=== PATIENT | female | born 1965 | race Caucasian/White ===

== ENCOUNTER 2020-06-08 19:53 | Emergency (ER) | payer MEDICAID, SELFPAY ==
[2020-06-08 20:11] VITALS: BP 141/86; PULSE 84; RESP 16; TEMP 36.7; O2SAT 100; BMI 21.0
[2020-06-08 20:20] VITALS: BP 141/86; PULSE 84; RESP 16; TEMP 36.7; O2SAT 100; BMI 21.0
--- NOTE | 2020-06-08 20:23 | XR_ITS ---
PROCEDURE: XR KNEE LT 3V CLINICAL INDICATION: pain COMPARISON: No exams were available for comparison FINDINGS: No fracture or dislocation. No lytic or blastic change. There is normal mineralization. The joint spaces are well-preserved. No significant degenerative/arthritic changes. No erosive changes evident. Other findings:None. IMPRESSION: No acute findings. Dictated by: Bob Bruno MD 06/09/2020 05:31 Bob Bruno MD in [place] 06/09/2020 05:31
--- NOTE | 2020-06-08 20:58 | HMH.EDUTC ---
[facility] [place] Disposition Clinical Impression: Knee sprain Qualifiers: Encounter type: initial encounter Involved ligament of knee: other ligament Laterality: left Qualified Code(s): S83.8X2A - Sprain of other specified parts of left knee, initial encounter Disposition: Home, Self-Care Condition on Discharge: Good Instructions: How to Use Crutches, How To Perform RICE (Rest, Ice, Compress, Elevate) Additional Instructions: *weight bearing as tolerated *RICE, Rest the extremity, Ice 15-20 minutes 3-4 times daily, Compress- wear the edilberto wrap as discussed as much as possible to help reduce swelling and pain, Elevate the extremity when at rest *Edilberto wrap is for support and help control swelling, use it except in the shower. Be sure that is not to tight but not to loose either *Elevate when resting *Ibuprofen every 6-8 hours as needed for pain an inflammation. If need something more can take Tylenol in between doses of Ibuprofen to help Immediately follow up with your family doctor for new or worsening of symptoms, or no noticeable improvement over the next 3-5 days Follow up with Family Doctor if no improvement or any worsening of symptom Call back to the [facility] tomorrow for official reading of your xray You may follow up with Orthopedics if needed Straight to ER if any life threatening symptoms Referrals: PCP,No [Primary Care Provider] - As needed Eamon Pastor MD [Staff Physician] - Time of Disposition: 21:17 Medical Decision Making - Vignesh Inquiry Pt receiving controlled substance: No Vignesh was queried for this patient: No Vital Signs: 06/08/20 20:11 06/08/20 20:20 Temperature 98.1 F 98.1 F Temperature Source Oral Oral Pulse Rate [Left] 84 84 Respiratory Rate 16 16 Blood Pressure [Left Arm] 141/86 H 141/86 H Blood Pressure Mean [Left Arm] 104 104 Blood Pressure Source [Left Arm] Automatic Cuff Automatic Cuff Blood Pressure Position [Left Arm] Sitting Sitting 02 Sat by Pulse Oximetry 100 100 Oxygen Delivery Method Room Air Room Air Orders (Tests/Meds): ORDERS Category Date Time Status XR knee LT 3V Stat Exams 06/08/20 20:23 Taken - Radiology Data #1 Image(s): Knee Image Reviewed: Yes I reviewed the patient's radiology image Preliminary Findings: No Fracture Seen Will place in knee immobilizer and crutches and have patient call back to [facility] for official Radiology reading [facility] [place] HPI - General Stated complaint: shrp pain in L knee cap Time Seen by Provider: 06/08/20 21:06 Mode of Arrival: Ambulatory Source of Information: Patient Limitations: No Limitations Description of Symptoms (Recalled from Triage Doc. by RN): PATIENT C/O SHARP PAIN IN LEFT KNEE X 1 WEEK. HEENT Symptoms (Recalled from RN notes): No Resp Symptoms (Recalled from RN notes): No Skin Symptoms (Recalled from RN notes): No MS Symptoms (Recalled from RN notes): Yes Functional Status (Recalled from RN notes): WNL - History of Present Illness Provider Complaint: Patient states that she has been having sharp pain in her left knee for about a week States that pain is worse at times when she is walking down a hill or steps over something States that she is not sure if she has done something too it or not Denies known injury - Related Data Allergies Allergy/AdvReac Type Severity Reaction Status Date / Time acetaminophen Allergy Verified 06/08/20 20:44 [From Excedrin Extra Strength] aspirin Allergy Verified 06/08/20 20:44 [From Excedrin Extra Strength] caffeine Allergy Verified 06/08/20 20:44 [From Excedrin Extra Strength] - Worker's Comp Is this a Worker's Comp case?: No [facility] History - Hepatitis A Screen Drug use history?: No High risk sexual behaviors?: No History of sexually transmitted infection?: No Currently employed?: No Childcare worker?: No Do you have indoor plumbing?: Yes Do you have electricity?: Yes Attestation statement:: This patient has been screened for Hepatitis A ri
[2020-06-08 21:20] VITALS: BP 141/86; PULSE 84; RESP 16; TEMP 36.7; O2SAT 100
== END 2020-06-08 21:25 | disposition home or self-care (01) ==
PROVIDERS: Emergency Provider Nurse Practitioner
DX: S83.91XA Sprain of unspecified site of right knee, initial encounter (principal); Z88.6 Allergy status to analgesic agent
CPT/HCPCS: 29505; 73562; 99202; G0463

== ENCOUNTER 2020-07-21 17:19 | Emergency (ER) | payer MEDICAID, SELFPAY ==
[2020-07-21 17:20] VITALS: BP 140/86; PULSE 77; RESP 17; TEMP 36.9; O2SAT 98; BMI 21.0
--- NOTE | 2020-07-21 17:56 | ECG_ITS ---
APPROVED REPORT Exam: Resting ECG HR:69 bpm ECG Measurements Heart Rate 69 AXES SD 120 P 64 QRSd 80 QRS 51 QT 420 T 59 QTc 450 Conclusion Normal sinus rhythm Normal ECG Electronically signed by : Jaron Vines, 07/22/2020 08:47:38
[2020-07-21 18:00] VITALS: BP 125/76; PULSE 72; RESP 17; O2SAT 98
--- NOTE | 2020-07-21 18:18 | CT_ITS ---
PROCEDURE INFORMATION: Exam: CT Abdomen And Pelvis Without Contrast Exam date and time: 07/21/2020 6:18 PM Age: 55 years old Clinical indication: Nausea and vomiting and other: Diarrhea; Prior surgery; Surgery date: 6+ months; Surgery type: Gallbladder, appendix, hysterectomy; Patient HX: Nausea, vomiting, diarrhea; Additional info: Abd pain TECHNIQUE: Imaging protocol: Computed tomography of the abdomen and pelvis without contrast. Radiation optimization: All CT scans at this facility use at least one of these dose optimization techniques: automated exposure control; mA and/or kV adjustment per patient size (includes targeted exams where dose is matched to clinical indication); or iterative reconstruction. COMPARISON: No relevant prior studies available. FINDINGS: Liver: Normal. No mass. Gallbladder and bile ducts: Cholecystectomy. Pancreas: Normal. No ductal dilation. Spleen: Normal. No splenomegaly. Adrenal glands: Normal. No mass. Kidneys and ureters: No obstructive uropathy. No renal stones. Stomach and bowel: Air-fluid levels in the colon likely reflecting diarrhea and possibly low-grade colitis. Appendix: Appendix not seen but no secondary signs of appendicitis. Intraperitoneal space: Unremarkable. No free air. No significant fluid collection. Vasculature: Unremarkable. No abdominal aortic aneurysm. Lymph nodes: Unremarkable. No enlarged lymph nodes. Urinary bladder: Unremarkable as visualized. Reproductive: Hysterectomy. Bones/joints: Unremarkable. No acute fracture. Soft tissues: Unremarkable. IMPRESSION: Low-grade colitis and diarrhea.
[2020-07-21 18:38] LABS: Adenovirus F 40/41, stool Not Detected (NotDetected); Astrovirus Not Detected (NotDetected); Campylobacter Not Detected (NotDetected); Clostridium Difficile A/B, PCR Not Detected (NotDetected); Cryptosporidium Not Detected (NotDetected); Cyclospora Cayetanesis Not Detected (NotDetected); Entamoeba histolytica Not Detected (NotDetected); Enteroaggregative E coli Not Detected (NotDetected); Enteropathogenic E coli Not Detected (NotDetected); Enterotoxigenic E coli Not Detected (NotDetected); Giardia lamblia Not Detected (NotDetected); Norovirus Not Detected (NotDetected); Plesimonas Shigalloides, PCR Not Detected (NotDetected); Rotavirus A Not Detected (NotDetected); Salmonella, PCR Not Detected (NotDetected); Sapovirus Not Detected (NotDetected); Shiga-like toxin E coli Not Detected (NotDetected); Shigella Enterovasive E coli Not Detected (NotDetected); Vibrio Cholerae Not Detected (NotDetected); Vibrio, PCR Not Detected (NotDetected); Yersinia Entercolitica, PCR Not Detected (NotDetected)
[2020-07-21 18:41] LABS: Basophils # 0.1 K/mm3 (0-0.2); Basophils % 0.4 % (0.1-2.0); Eosinophils # 0.2 K/mm3 (0.0-0.4); Eosinophils % 1.3 % (0.1-12.0); Hematocrit 45.8 % (37.0-47.0); Hemoglobin 15.3 g/dL (12.2-16.2); Mean Corpuscular HGB Conc 33.5 g/dL (31.8-35.4); Mean Corpuscular Hemoglobin 30.5 pg (27.0-31.2); Mean Platelet Volume 8.3 fl (7.4-10.4); Monocytes # 0.2 K/mm3 (0.1-1.0); Monocytes % 1.5 % (1.7-9.3); Neutrophils # 11.9 K/mm3 (1.8-7.8); Neutrophils % 82.7 % (37.0-80.0); Platelet Count 338 K/mm3 (142-424); Red Blood Count 5.03 M/mm3 (4.20-5.40); White Blood Count 14.5 K/mm3 (4.8-10.8)
[2020-07-21 19:00] VITALS: BP 94/55; PULSE 68; RESP 17; O2SAT 100
[2020-07-21 19:07] LABS: Troponin I < 0.01 ng/ml (0.00-0.034)
[2020-07-21 19:28] LABS: Chloride 102 mmol/L (98-107); Sodium 141 mmol/L (136-145)
[2020-07-21 19:29] LABS: Potassium 3.8 mmoL/L (3.5-5.1)
[2020-07-21 19:30] VITALS: BP 119/73; PULSE 73; RESP 17; O2SAT 100
[2020-07-21 19:31] LABS: Alanine Aminotransferase 19 U/L (12-78); Alkaline Phosphatase 99 U/L (38-126); Amylase 137 U/L (30-110); Anion Gap 20.8 mEq/L (5-15); Aspartate Amino Transferase 40 U/L (14-36); Bilirubin,Total 0.7 mg/dl (0.2-1.3); Blood Urea Nitrogen 19 mg/dl (7-17); Carbon Dioxide 22 mmol/L (22.0-30.0); Creatinine Clearance Estimated 76 mL/min (50-200); Estimated Glomerular Filt Rate 86 ml/min (>60); GFR (African American) 104 ML/MIN (>60); Lipase 143 U/L (23-300)
[2020-07-21 19:32] LABS: Albumin Level 5.8 g/dl (3.5-5.0); Albumin/Globulin Ratio 1.3 (1.1-1.8); Calcium 10.5 mg/dl (8.4-10.2); Globulin 4.5 g/dL (1.3-3.2); Glucose 117 mg/dl (74-100); Total Protein,Serum 10.3 g/dl (6.3-8.2)
--- NOTE | 2020-07-21 20:13 | HMH.EDABDPAI ---
ED Disposition Clinical Impression: Colitis Disposition: Home, Self-Care Condition on Discharge: Fair Instructions: DI for Acute Abdominal Pain Additional Instructions: We have checked your labs and CBC CMP are within normal limits CT of the abdomen and pelvis shows colitis plan is to give you prescriptions for Cipro and Flagyl and Zofran for nausea Prescriptions: Dicyclomine HCl [Bentyl 10mg capsule] 10 mg PO TID PRN #10 capsule PRN Reason: Cramping Ciprofloxacin HCl [Cipro 500mg Tab] 500 mg PO BID #14 tab metroNIDAZOLE [Flagyl 500mg Tablet] 500 mg PO BID #14 tab Ondansetron [Zofran 4mg ODT] 4 mg PO NEEDED PRN 10 Days #14 tab.rapdis PRN Reason: Nausea Referrals: Provider,Referral, MD [Primary Care Provider] - - Critical Care Critical Care Time: No Attestation: On 07/21/20, the high probability of a clinically significant, sudden or life threatening deterioration of the following system(s) required my full and direct attention, intervention and personal management. The time I documented below is in addition to time spent performing reported procedures but includes the following listed in this critical care notation. Medical Decision Making - Medical Records Medical records reviewed: Yes: I reviewed the patient's medical records. MR Comment: PATIENT C/O EPIGASTRIC PAIN, LOWER ABDOMINAL PAIN, AND N/V/D STARTING TODAY. PT REPORTS SHE HAS HAD HER APPENDIX AND GALLBLADDER REMOVED. CBC CMP CT of the abdomen and pelvis shows colitis plan is to give her prescriptions for Cipro and Flagyl as well as Zofran for nausea - Vignesh Inquiry Pt receiving controlled substance: No Vital Signs: 07/21/20 17:20 07/21/20 18:00 07/21/20 19:00 Temperature 98.4 F Temperature Source Oral Pulse Rate 72 68 Pulse Rate [Right] 77 Respiratory Rate 17 17 17 Blood Pressure 125/76 94/55 L Blood Pressure [Right Arm] 140/86 Blood Pressure Mean [Right Arm] 104 Blood Pressure Source Automatic Cuff Automatic Cuff Blood Pressure Position Supine Supine 02 Sat by Pulse Oximetry 98 98 100 Oxygen Delivery Method Room Air 07/21/20 19:30 Temperature Temperature Source Pulse Rate 73 Pulse Rate [Right] Respiratory Rate 17 Blood Pressure 119/73 Blood Pressure [Right Arm] Blood Pressure Mean [Right Arm] Blood Pressure Source Blood Pressure Position 02 Sat by Pulse Oximetry 100 Oxygen Delivery Method - Lab Data Lab Results 07/21/20 18:25: WBC 14.5 H, RBC 5.03, Hgb 15.3, Hct 45.8, MCV 91.0, MCH 30.5, MCHC 33.5, RDW 14.0, Plt Count 338, MPV 8.3, Neut % (Auto) 82.7 H, Lymph % (Auto) 14.0, Grimes % (Auto) 1.5 L, Eos % (Auto) 1.3, Baso % (Auto) 0.4, Neut # (Auto) 11.9 H, Lymph # (Auto) 2.0, Grimes # (Auto) 0.2, Eos # (Auto) 0.2, Baso # (Auto) 0.1 07/21/20 18:25: Sodium 141, Potassium 3.8, Chloride 102, Carbon Dioxide 22, Anion Gap 20.8 H, BUN 19 H, Creatinine 0.70, Estimated Creat Clear 76, Estimated GFR 86, Est GFR ( Amer) 104, Glucose 117 H, Calcium 10.5 H, Total Bilirubin 0.7, AST 40 H, ALT 19, Alkaline Phosphatase 99, Troponin I < 0.01, Total Protein 10.3 H, Albumin 5.8 H, Globulin 4.5 H, Albumin/Globulin Ratio 1.3, Amylase 137 H, Lipase 143 Result diagrams: 07/21/20 18:25 07/21/20 18:25 Orders (Tests/Meds): ED MEDICATIONS Generic Name Dose Route Start Last Admin Trade Name Freq PRN Reason Stop Dose Admin Sodium Chloride 1,000 mls @ 999 mls/hr 07/21/20 18:30 07/21/20 18:53 Sod Chlor 0.9% 1000ml Bag IV 07/21/20 19:30 999 mls/hr .Q1H1M KOLBY Administration Discontinued Medications Generic Name Dose Route Start Last Admin Trade Name Freq PRN Reason Stop Dose Admin Ondansetron HCl 4 mg 07/21/20 18:23 07/21/20 18:53 Ondansetron 4mg/2ml Vial IV 07/21/20 18:24 4 mg ONCE ONE Administration ORDERS Category Date Time Status Diarrhea 23 Panel, PCR Stat Lab 07/21/20 18:25 Received Troponin I Q3H Lab 07/21/20 21:30 Ordered Troponin I Q3H Lab 07/22/20 0
[2020-07-21 20:40] VITALS: BP 122/62; PULSE 72; RESP 18; TEMP 36.9; O2SAT 100
== END 2020-07-21 20:50 | disposition home or self-care (01) ==
PROVIDERS: Emergency Provider Emergency Medicine
DX: K52.9 Noninfective gastroenteritis and colitis, unspecified (principal)
CPT/HCPCS: 74176; 80053; 82150; 83690; 84484; 85025; 87507; 93005; 96365; 96375; 99282; J2405

== ENCOUNTER → 2020-10-27 18:44 | Outpatient (CLI) | payer OTHER, SELFPAY ==
[2020-10-27 20:36] LABS: Barbiturates Screen,Urine Negative ng/ml (<200); Benzodiazepines Screen,Urine Negative ng/ml (<200)
[2020-10-27 20:37] LABS: Amphetamine/Metha Screen,Urine Negative ng/ml (<1000)
[2020-10-27 20:38] LABS: Cannabinoid Screen,Urine Negative ng/ml (<50); Cocaine Screen,Urine Negative ng/ml (<300)
[2020-10-27 20:39] LABS: Methadone Screen,Urine Negative ng/ml (<300)
[2020-10-27 20:40] LABS: Opiate Screen,Urine Negative ng/ml (<300)
[2020-10-27 20:41] LABS: Phencyclidine Screen,Urine Negative ng/ml (<25)
== END ==
PROVIDERS: Visit Provider Emergency Medicine
DX: M54.16 Radiculopathy, lumbar region (principal)
CPT/HCPCS: 80305

== ENCOUNTER → 2020-10-28 11:36 | Outpatient (CLI) | payer OTHER, SELFPAY ==
[2020-10-28 12:33] LABS: Basophils # 0.1 K/mm3 (0-0.2); Basophils % 0.8 % (0.1-2.0); Eosinophils # 0.1 K/mm3 (0.0-0.4); Eosinophils % 0.9 % (0.1-12.0); Hematocrit 39.4 % (37.0-47.0); Lymphocytes # 1.9 K/mm3 (0.7-4.5); Lymphocytes % 26.9 % (10-50); Mean Corpuscular HGB Conc 33.1 g/dL (31.8-35.4); Mean Corpuscular Hemoglobin 30.5 pg (27.0-31.2); Mean Corpuscular Volume 92.3 fl (81-99); Mean Platelet Volume 8.5 fl (7.4-10.4); Monocytes # 0.2 K/mm3 (0.1-1.0); Monocytes % 2.4 % (1.7-9.3); Neutrophils % 69.1 % (37.0-80.0); Platelet Count 217 K/mm3 (142-424); Red Blood Count 4.27 M/mm3 (4.20-5.40); Red Cell Distribution Width 14.1 % (11.5-17.5); White Blood Count 7.2 K/mm3 (4.8-10.8)
[2020-10-28 13:09] LABS: Chloride 103 mmol/L (98-107); Potassium 4.6 mmoL/L (3.5-5.1); Sodium 140 mmol/L (136-145)
[2020-10-28 13:11] LABS: Alanine Aminotransferase 16 U/L (12-78); Albumin Level 4.6 g/dl (3.5-5.0); Albumin/Globulin Ratio 1.4 (1.1-1.8); Alkaline Phosphatase 84 U/L (38-126); Anion Gap 13.6 mEq/L (5-15); Aspartate Amino Transferase 27 U/L (14-36); Bilirubin,Total 0.7 mg/dl (0.2-1.3); Blood Urea Nitrogen 13 mg/dl (7-17); Carbon Dioxide 28 mmol/L (22.0-30.0); Estimated Glomerular Filt Rate 103 ml/min (>60); GFR (African American) 125 ML/MIN (>60); Globulin 3.2 g/dL (1.3-3.2); Total Protein,Serum 7.8 g/dl (6.3-8.2)
[2020-10-28 13:12] LABS: Calcium 9.6 mg/dl (8.4-10.2); Chol/HDL Ratio 2.2 (1-3.5); Cholesterol 167 mg/dl (140-200); Glucose 94 mg/dl (74-100); HDL Cholesterol 76 mg/dl (40-60); Triglycerides 59 mg/dl (30-150); VLDL Cholesterol 12 mg/dL (0-40)
[2020-10-28 13:18] LABS: C-Reactive Protein 1.6 mg/L (0-4)
[2020-10-28 13:29] LABS: T4 (Thyroxine) 8.7 ug/dl (5.53-11.0)
[2020-10-28 13:43] LABS: Thyroid Stimulating Hormone 2.17 uIU/mL (0.465-4.68)
[2020-10-28 14:41] LABS: Vitamin B12 239 pg/mL (239-931)
[2020-10-28 19:36] LABS: Erythrocyte Sedimentation Rate 20 mm/hr (0-30)
[2020-10-29 12:27] LABS: Hep A Ab, IgM Negative (Negative); Hepatitis B Core Antibody IgM Negative (Negative); Hepatitis B Surface Antigen Negative (Negative); Hepatitis C Antibody 0.1 s/co ratio (0.0-0.9)
== END ==
PROVIDERS: Visit Provider Emergency Medicine
DX: M54.16 Radiculopathy, lumbar region (principal); R10.13 Epigastric pain; G43.909 Migraine, unspecified, not intractable, without status migrainosus; F41.9 Anxiety disorder, unspecified; N95.9 Unspecified menopausal and perimenopausal disorder
CPT/HCPCS: 36415; 80053; 80061; 80074; 82607; 84436; 84443; 85025; 85651; 86140

== ENCOUNTER → 2020-11-12 15:45 | Outpatient (CLI) | payer OTHER, SELFPAY ==
--- NOTE | 2020-11-12 15:46 | MM_ITS ---
PROCEDURE: MM DIG SCREENING MAMM BI W/CAD Digital Breast Tomosynthesis Included CLINICAL INDICATION: screening COMPARISON: No exams were available for comparison TECHNIQUE: Standard CC and MLO images and 3D Tomosynthesis was obtained. R2 CAD reviewed. FINDINGS: The report is delayed waiting outside exams for comparison. These have not been made available as of this reading date. There are scattered areas of fibroglandular density. Skin fold artifact noted on the right in the axilla. No suspicious appearing mass, malignant-appearing microcalcification, architectural distortion, or skin thickening. There are few scattered small benign-appearing nodular opacities as well as benign-appearing calcifications. IMPRESSION: No evidence of malignancy. BI-RAD Category: 2 Benign Finding FOLLOW-UP: 1 YR 1 Year Follow-up (A letter has been sent to the patient regarding results of the study.) Dictated by: Bob Bruno MD 11/25/2020 15:01 Bob Bruno MD in [place] 11/25/2020 15:01
--- NOTE | 2020-11-12 16:11 | MR_ITS ---
PROCEDURE: MR LUMBAR SPINE WO CON CLINICAL INDICATION: back pain COMPARISON: No exams were available for comparison TECHNIQUE: Standard multiplanar multiecho sequences are performed without contrast. 3-D MIP and myelographic images are also rendered and reviewed FINDINGS: Normal alignment. The spinal cord ends at the L1 level. No fracture or dislocation. No bony destructive process. L1-L2 and L2-L3 have an unremarkable appearance. L3-L4: Mild bulging disc with small central annular fissure with facet and ligamentum hypertrophy with mild bilateral lateral recess and narrowing. L4-5: Mild bulging disc with facet ligamentum hypertrophy with moderate bilateral lateral recess and foraminal narrowing L5-S1: Degenerative disc disease with bulging disc. There is a small broad-based central/left paracentral disc protrusion impinging upon the left S1 nerve root along facet ligamentum hypertrophy with severe left lateral recess left-sided foraminal narrowing and moderate to severe right-sided lateral recess foraminal narrowing. Endplate hypertrophic changes. Canal stenosis of 10 mm. IMPRESSION: 1. L3-L4: Mild bulging disc with small central annular fissure with facet and ligamentum hypertrophy with mild bilateral lateral recess and narrowing. 2. L4-5: Mild bulging disc with facet ligamentum hypertrophy with moderate bilateral lateral recess and foraminal narrowing 3. L5-S1: Degenerative disc disease with bulging disc. There is a small broad-based central/left paracentral disc protrusion impinging upon the left S1 nerve root along facet ligamentum hypertrophy with severe left lateral recess left-sided foraminal narrowing and moderate to severe right-sided lateral recess foraminal narrowing. Endplate hypertrophic changes. Canal stenosis of 10 mm. Dictated by: Bob Bruno MD 11/13/2020 06:16 Bob Bruno MD in [place] 11/13/2020 06:16
== END ==
PROVIDERS: PCP Emergency Medicine; Visit Provider Emergency Medicine
DX: Z12.31 Encounter for screening mammogram for malignant neoplasm of breast (principal); M54.16 Radiculopathy, lumbar region
CPT/HCPCS: 72148; 76376; 77063; 77067

== ENCOUNTER → 2020-12-02 13:32 | Outpatient (CLI) | payer MEDICAID, SELFPAY ==
--- NOTE | 2020-12-02 15:35 | MR_ITS ---
PROCEDURE: MR HEAD/BRAIN WO CON CLINICAL INDICATION: eval for mass, lesion Headache with blurred vision COMPARISON: No exams were available for comparison TECHNIQUE: Routine multiplanar multi echo sequences are performed without gadolinium enhancement. FINDINGS: No midline shift, mass effect, intracranial hemorrhage, or hydrocephalus. The cerebellopontine angles, cerebellum, and brainstem have an unremarkable appearance. There are few small T2 white matter hyperintensities which are nonspecific most commonly due to small ischemic gliotic foci from microvascular disease. The pituitary, optic chiasm, corpus callosum, and craniocervical junction have an unremarkable appearance. The hippocampal gyri are unremarkable in the temporal horns are symmetric. No mastoid effusion or sinus air-fluid level. IMPRESSION: No acute intracranial findings. There are few small nonspecific T2 white matter hyperintensities which may be due to ischemic gliotic foci from microvascular disease. Migraine headache is included in the differential diagnosis Dictated by: Bob Bruno MD 12/03/2020 15:58 Bob Bruno MD in [place] 12/03/2020 15:58
[2020-12-04 08:32] LABS: Homocyst(e)ine 11.7 umol/L (0.0-14.5)
[2020-12-09 17:14] LABS: Methylmalonic Acid 228 nmol/L (0-378)
== END ==
PROVIDERS: PCP Emergency Medicine; Visit Provider Nurse Practitioner Family
DX: G43.019 Migraine without aura, intractable, without status migrainosus (principal); F11.90 Opioid use, unspecified, uncomplicated; G47.00 Insomnia, unspecified; G89.29 Other chronic pain; M54.5 Low back pain; R06.81 Apnea, not elsewhere classified; R06.83 Snoring; R53.83 Other fatigue; Z86.69 Personal history of other diseases of the nervous system and sense organs
CPT/HCPCS: 36415; 70551; 82131; 82746; 83090

== ENCOUNTER 2021-01-16 13:00 | Outpatient (RCR) | payer MEDICAID, SELFPAY ==
--- NOTE | 2020-12-02 15:38 | HMH.PTOPEV ---
PT Outpatient Evaluation Rehab PT Outpatient Evaluation Start: 12/02/20 15:22 Freq: Status: Active Protocol: Document 12/02/20 15:22 ROLANDO (Rec: 12/02/20 15:38 ROLANDO [id number]) Electronically Signed By Yosvany Parkinson, PT 12/02/20 15:22 Outpatient Therapy Subjective History Subjective History Patient is a 55 year old female presenting to outpatient PT with reports of chronic cervical spine pain and migraines starting approximately 30 years ago. Patient reports mulitple episodes of imaging that were negative. No reports on file to report. Patient reports daily headaches/migraines. Symptoms range from mild to severe. Comorbidities include hx of anxiety/depression, B CTR x 2 and hysterectomy. Chief Complaint Pain,Stiff Symptom Type Sharp,Dull Symptoms Relieved By Heat,Prescription Meds Symptoms Aggravated By Physical Activity,Lifting Prior Functional Limitations None Current Functional Limitations Reaching,Lifting,Housework, Sleeping,Recreation Activity Symptom Description Constant but Variable Level of pain today (0-10) 5 Pain scale - at its best (0-10) 3 Pain scale - at its worst (0-10) 10 Cervical Eval Palpation Cervical Muscles R Cervical Paraspinal,L Cervical Paraspinal,R Suboccipital,L Suboccipital,R Upper Trapezius,L Upper Trapezius Posture Head/C-Spine Posture Sitting Position C-Spine Flattened Head/C-Spine Posture Standing Position C-Spine Flattened Flexibility Deficits Upper Trapezius Muscle Length (R) Moderate Tightness,(L) Moderate Tightness Levaetor Scapulae Muscle Length (R) Moderate Tightness,(L) Moderate Tightness Scalene Group Muscle Length (R) Moderate Tightness,(L) Moderate Tightness Pectoralis Minor Muscle Length (R) Moderate Tightness,(L) Moderate Tightness Passive Joint Mobility Cervical PIVM Dec: R OA L OA R AA L AA R C2/3 L C2/3 R C3/4
--- NOTE | 2021-01-16 13:36 | HMH.RHREAS ---
Rehab Reassessment Rehab OP Re-assessment Start: 01/16/21 13:26 Freq: Status: Active Protocol: Document 01/16/21 13:27 ROLANDO (Rec: 01/16/21 13:36 ROLANDO [id number]) Electronically Signed By Yosvany Parkinson, PT 01/16/21 13:27 Rehab Re-assessment Subjective Subjective Patient reports 10% improvement since start of care. Objective Objective Notes CROM: flx 35; ext 50; SBr 55; SBl 45; Rr/Rl WNL MMT: WNL Pain: 2/10 currently; 10/10 at worst over past week Neuro: WNL Special tests: negative Assessment Progress Assessment Slower Than Expected Assessment Notes Patient has been seen in outpatient PT for 4 treatment visits to date over the past 45 days. Progress has been delayed due to exacerbation of symptoms. Patient experiences significant relief of headaches/migraines for approx 2-3 days after a needling session. Patient compliant with HEP. Overall decreased frequency of symptom . Duration and intensity persist. Persistent functional limitations with all household and ADL activities. Patient goals met STG 2 Goals Not Met All others Revised Goals NA Plan Plan Continue with current POC. Frequency of Therapy 2x/week Duration of therapy 4 weeks Time and Billing Re-Eval Time 15 Re-Eval Billing Units 1 PHYSICIAN CERTIFICATION: I certify the specified therapy services for Hui Snow are required, authorized, and reviewed every 30 days.
== END 2021-01-16 13:05 | disposition home or self-care (01) ==
LOC: PT 13:00
PROVIDERS: Visit Provider Nurse Practitioner Family
DX: G43.019 Migraine without aura, intractable, without status migrainosus (principal)
CPT/HCPCS: 20561; 97010; 97014; 97110; 97163; 97164; G0283

== ENCOUNTER 2021-12-04 19:08 | Emergency (ER) | payer MEDICAID, SELFPAY ==
[2021-12-04 19:21] VITALS: BP 132/88; PULSE 81; RESP 18; TEMP 36.8; O2SAT 98; BMI 18.2
--- NOTE | 2021-12-04 19:21 | CT_ITS ---
PROCEDURE INFORMATION: Exam: CT Lumbar Spine Without Contrast Exam date and time: 12/04/2021 7:33 PM Age: 56 years old Clinical indication: Injury or trauma; Fall; Blunt trauma (contusions or hematomas); Additional info: Fall, back trauma TECHNIQUE: Imaging protocol: Computed tomography of the lumbar spine without contrast. Radiation optimization: All CT scans at this facility use at least one of these dose optimization techniques: automated exposure control; mA and/or kV adjustment per patient size (includes targeted exams where dose is matched to clinical indication); or iterative reconstruction. COMPARISON: MR LUMBAR SPINE WO CON 11/12/2020 4:18 PM FINDINGS: Bones/joints: Moderate compression deformity at L2 with anterior endplate measuring 19 mm compared to 27 mm at the adjacent level. 4 mm of retropulsion. Spondylosis most prominet at L5-S1. Soft tissues: Unremarkable. IMPRESSION: Moderate compression deformity at L2.
--- NOTE | 2021-12-04 19:21 | CT_ITS ---
PROCEDURE INFORMATION: Exam: CT Pelvis Without Contrast; Skeletal Exam date and time: 12/04/2021 7:39 PM Age: 56 years old Clinical indication: Injury or trauma; Fall; Blunt trauma (contusions or hematomas); Bilateral; Hip; Additional info: Fall, sacral trauma TECHNIQUE: Imaging protocol: Computed tomography of the pelvis without contrast. Exam focused on the skeleton. Radiation optimization: All CT scans at this facility use at least one of these dose optimization techniques: automated exposure control; mA and/or kV adjustment per patient size (includes targeted exams where dose is matched to clinical indication); or iterative reconstruction. COMPARISON: CT ABDOMEN PELVIS WO CON 07/21/2020 6:31 PM FINDINGS: Bones/joints: Advanced degenerative changes most prominent at L5-S1. No acute fracture or dislocation. Soft tissues: Unremarkable. IMPRESSION: No acute findings.
--- NOTE | 2021-12-04 20:28 | XR_ITS ---
PROCEDURE INFORMATION: Exam: XR Lumbosacral Spine Exam date and time: 12/04/2021 8:30 PM Age: 56 years old Clinical indication: Injury or trauma; Fall; Crushing; Additional info: Compression fracture TECHNIQUE: Imaging protocol: Radiologic exam of the lumbosacral spine. Views: 2 or 3 views. COMPARISON: CT LUMBAR SPINE WO CON 12/04/2021 7:33 PM FINDINGS: Bones/joints: Moderate anterior wedge compression deformity of L2. Soft tissues: Status post cholecystectomy. IMPRESSION: Moderate anterior wedge compression deformity of L2.
--- NOTE | 2021-12-04 20:29 | HMH.EDFALL ---
Discharge Plan Disposition Patient Disposition: Home, Self-Care Condition: Fair Prescriptions Prescriptions: New oxycodone 5 mg tablet 5 mg PO Q6H PRN (Reason: pain) Qty: 15 0RF ondansetron 4 mg tablet,disintegrating 4 mg PO TIDP PRN (Reason: Nausea) Qty: 10 0RF methocarbamol [Methocarbamol] 750 mg tablet 750 mg PO Q6 PRN (Reason: Muscle Spasm) Qty: 30 0RF No Action hydrocodone-acetaminophen 7.5-325 mg tablet 1 tab PO BID PRN (Reason: pain) Qty: 10 0RF methylprednisolone [Medrol (Elijah)] 4 mg tablets,dose pack See Rx Instructions PO PER PKG DIR Qty: 21 0RF Rx Instructions: PO PER PKG DIR furosemide [Lasix] 20 mg tablet 20 mg PO DAILY PRN (Reason: edema) Qty: 30 2RF clonazepam [Klonopin] 0.5 mg tablet 0.5 mg PO BID Qty: 60 0RF triamcinolone acetonide [Nasacort] 55 mcg aerosol,spray 1 spray INTRANASAL DAILY Qty: 16.9 2RF Rx Instructions: administer into each nostril estradiol 0.1 mg/24 hr patch semiweekly 1 patch TRANSDERMA .2 times week Qty: 8 4RF fluticasone propionate [Flonase Allergy Relief] 50 mcg/actuation spray,suspension 1 spray INTRANASAL QDAY 30 Days Qty: 9.9 2RF Rx Instructions: administer into each nostril lidocaine [Lidoderm] 5 % adhesive patch,medicated See Rx Instructions .ROUTE .COMPLEX Qty: 30 0RF Dose Instruction: APPLY 1 PATCH TO AREA DAILY. LEAVE ON MOST PAINFUL AREA FOR UP TO 12 HRS Rx Instructions: APPLY 1 PATCH TO AREA DAILY. LEAVE ON MOST PAINFUL AREA FOR UP TO 12 HRS diclofenac sodium 1 % gel See Rx Instructions .ROUTE .COMPLEX Qty: 100 0RF Dose Instruction: APPLY 2 GRAMS TO AFFECTED AREA 4 TIMES A DAY Rx Instructions: APPLY 2 GRAMS TO AFFECTED AREA 4 TIMES A DAY cetirizine 10 mg tablet See Rx Instructions .ROUTE .COMPLEX Qty: 90 0RF Dose Instruction: TAKE 1 TABLET BY MOUTH DAILY Rx Instructions: TAKE 1 TABLET BY MOUTH DAILY Referrals Follow up/Referrals: Kiko Montes MD [Primary Care Provider] - See instructions Activity Restrictions/Add. Instructions Additional Instructions/Restrictions: We have talked with [facility] about setting up with follow-up. They will call you to schedule this appointment. Please do not bend, lift more than 10 pounds or twist until your appointment. Clinical Impressions Clinical Impression: Compression fracture Discharge ED Provider: Mani Varghese Fall HPI General Chief Complaint: Fall Stated Complaint: fall, lower back pain Time Seen by Provider: 12/04/21 19:15 Mode of Arrival: Wheelchair Source of Information: Patient Limitations: No Limitations Description of Symptoms (Recalled from ER Triage Doc. by RN): Per pt, roughly 20 minutes ago she was holding a log and slipped and landed on her back holding the log. Also, there was a stump protruding from the ground where she landed and it hit her in the lower middle back. Denies any loss of consciousness, bowel or bladder. No visible injury. History of Present Illness HPI Narrative: Patient is a 56-year-old female who presents after a fall. She states that approximately 20 minutes prior to arrival she was holding a log and slept and then landed on her back. She notes that there was also a stump on the ground which she landed and hit her lower back. She did not hit her head and denies any loss consciousness. No bowel or bladder incontinence. No numbness or tingling into her extremities. She was able to ambulate afterwards. Denies any chest or abdominal pain. Related Data Previous Rx's Medication Instructions Recorded triamcinolone acetonide 55 mcg 1 spray intranasal DAILY #16.9 mL 12/31/20 nasal spray aerosol (Nasacort) estradiol 0.1 mg/24 hr semiweekly 1 patch transdermal .2 times week 05/15/21 transdermal patch #8 ea fluticasone propionate 50 1 spray intranasal QDAY 30 days 08/06/21 mcg/actuation nasal #9.9 grams spray,suspension (Flonase Allergy Relief) lidocaine 5
--- NOTE | 2021-12-04 21:17 | PC.NURSE ---
Call to spine manager transportation planning, Dr. Villavicencio in ER
[2021-12-04 22:31] VITALS: BP 115/78; PULSE 74; RESP 18; TEMP 36.8; O2SAT 98
== END 2021-12-04 22:34 | disposition home or self-care (01) ==
PROVIDERS: Emergency Provider Student in an Organized Health Care Education/Training Program; PCP Family Medicine
DX: M54.50 Low back pain, unspecified (principal); W20.8XXA Other cause of strike by thrown, projected or falling object, initial encounter; F17.200 Nicotine dependence, unspecified, uncomplicated
CPT/HCPCS: 72100; 72131; 72192; 96372

== ENCOUNTER → 2021-12-16 14:51 | Outpatient (POV) | payer MEDICAID, SELFPAY ==
[2021-12-16 15:16] VITALS: BP 121/80; PULSE 91; RESP 18; TEMP 37.2; O2SAT 99; BMI 20.2
--- NOTE | 2021-12-16 16:33 | EXP.PAIN.OV ---
HPI Data of Consult Patient: new to practice Consult date: 12/16/21 Requesting Physician: Nuria Holman APRN Primary Care Provider: Kiko Montes MD Consult Narrative Reason for consult: Back pain, compression fracture L2 due to recent fall History of present illness: Ms. Snow is a 56 year old female who presents today as a new patient. She is a referral from Dr. Montes office. Today she rates her pain a 7 out of 10. She states her pain is all in her mid/low back and started from a injury on December 04. She states that she was helping a friend lift would and clean up debris when she fell back on a tree stump that was sticking out and felt her back snap. Patient has experienced significant pain following this incident. She has sharp, achy pain sensations on a constant basis. Patient states nothing seems to improve the pain. Pain is worse with increased activity or prolonged sitting, standing, walking as well. Patient has tried [id number] medications however these did not do anything. She was also given in ER morphine, Zofran however this did not help. She also presented to the [facility] where she was also given Phenergan and Dilaudid which she states helped a little. Patient states she does have a history of some low back pain specifically her SI's would flare up occasionally and she had previously been scheduled to see as for this issue. Patient is currently managed with oxycodone 5 mg 3 times a day. Patient denies any side effects from this medication however she states that this medication still does not significantly improve her pain symptoms. Her Vignesh is [phone]. It has been reviewed and appropriate. CC: Nuria Holman APRN [facility] Medical History (Updated 12/16/21 @ 16:41 by Nuria Holman APRN) Anxiety Depression H/O (corrected) congenital malformations of digestive system Kidney stone Migraine Osteoporosis Sacroiliitis Surgical History (Updated 12/16/21 @ 15:23 by Tess Julian RN) H/O: hysterectomy Social History (Updated 12/16/21 @ 15:27 by Tess Julian RN) Smoking Status: Current every day smoker alcohol intake: never substance use type: denies use current occupational status: other Travel in the last 8 weeks: None household members: significant other housing: apartment Review of Systems Review of Systems Review of systems:: pertinent systems reviewed and negative unless documented below Review of systems (narrative): Review of Systems: General: No recent weight changes, no fever, no sleep disturbances Respiratory: No cough, no shortness of air, no recurring pulmonary infections Cardiovascular/peripheral vascular: No chest pain, no palpitations, no edema, no shortness of breath Gastrointestinal: No new onset incontinence, normal bowel movements reported Genitourinary: No new onset incontinence Musculoskeletal: Mid/low back pain Psychiatric: [Normal mood/affect] Neurological: [Denies weakness in extremities], [denies balance issues] Meds Home Medications and Allergies Home Medications Medication Instructions Recorded Confirmed Type furosemide 20 mg tablet (Lasix) 20 mg PO DAILY PRN edema #30 tabs 10/27/21 12/16/21 Rx hydrocodone 7.5 mg-acetaminophen 1 tab PO BID PRN pain #10 tabs 10/27/21 12/16/21 Rx 325 mg tablet methocarbamol 750 mg tablet 750 mg PO Q6 PRN Muscle Spasm #30 12/04/21 12/16/21 Rx tabs magnesium citrate 150 ml PO DAILY PRN constipation 12/14/21 12/16/21 Rx #296 mL oxycodone 5 mg tablet 5 mg PO Q8H PRN pain #45 tabs 12/14/21 12/16/21 Rx cetirizine 10 mg tablet See Rx Instructions .Route 12/16/21 12/16/21 History .COMPLEX ALLERGIES clonazepam 0.5 mg tablet (Klonopin) 0.5 mg PO BID NERVES 12/16/21 12/16/21 History diclofenac sodium 1 % topical gel See Rx Instructions .Route 12/16/21 12/16/21 History .COMPLEX Pain estradiol 0.1 mg/24 hr semiweekly 1 patch transdermal .2 times week 12/16/21 12/16/21 History transdermal pat
== END ==
PROVIDERS: PCP Family Medicine; Visit Provider Nurse Practitioner Family
DX: M54.50 Low back pain, unspecified (principal); M54.9 Dorsalgia, unspecified; S32.020A Wedge compression fracture of second lumbar vertebra, initial encounter for closed fracture
CPT/HCPCS: 99202; G0463

== ENCOUNTER 2022-01-01 10:56 | Day surgery (SDC) | payer MEDICAID, SELFPAY ==
[2021-12-30 14:32] VITALS: BMI 20.2
[2022-01-01 11:19] VITALS: BP 117/80; PULSE 75; RESP 18; TEMP 36.3; O2SAT 100
[2022-01-01 11:34] LABS: Basophils # 0.1 K/mm3 (0-0.2); Basophils % 1.3 % (0.1-2.0); Eosinophils # 0.2 K/mm3 (0.0-0.4); Eosinophils % 3.1 % (0.1-12.0); Hematocrit 41.6 % (37.0-47.0); Hemoglobin 13.8 g/dL (12.2-16.2); Lymphocytes # 1.6 K/mm3 (0.7-4.5); Lymphocytes % 33.6 % (10-50); Mean Corpuscular HGB Conc 33.3 g/dL (31.8-35.4); Mean Platelet Volume 13.4 fl (7.4-10.4); Monocytes # 0.2 K/mm3 (0.1-1.0); Neutrophils # 2.9 K/mm3 (1.8-7.8); Platelet Count 196 K/mm3 (142-424); Red Blood Count 4.47 M/mm3 (4.20-5.40); Red Cell Distribution Width 16.4 % (11.5-17.5); White Blood Count 4.9 K/mm3 (4.8-10.8)
[2022-01-01 12:06] LABS: Chloride 100 mmol/L (98-107); Potassium 4.1 mmoL/L (3.5-5.1); Sodium 139 mmol/L (136-145)
[2022-01-01 12:09] LABS: Anion Gap 12.1 mEq/L (5-15); Blood Urea Nitrogen 12 mg/dl (7-17); Calcium 9.1 mg/dl (8.4-10.2); Carbon Dioxide 31 mmol/L (22.0-30.0); Creatinine Clearance Estimated 100 mL/min (50-200); Estimated Glomerular Filt Rate 127 ml/min (>60); GFR (African American) 153 ML/MIN (>60); Glucose 89 mg/dl (74-100)
--- NOTE | 2022-01-01 13:41 | EXP.ANES.CKL ---
[facility] Medical History Anxiety Depression H/O (corrected) congenital malformations of digestive system Hot flashes due to menopause Kidney stone Migraine Night sweats Osteoporosis Sacroiliitis Surgical History H/O: hysterectomy History of back surgery History of carpal tunnel surgery Hx of tubal ligation Family History Other Brain cancer Family history of acute congestive heart failure Family history of diabetes mellitus type II Family history of hyperlipidemia Family history of hypertension Lung cancer Social History Smoking Status: Never smoker alcohol intake: never substance use type: denies use current occupational status: unemployed and other Travel in the last 8 weeks: None household members: significant other housing: apartment [facility] Anesthesia Checklist Patient Identification Patient Identification: Arm Band and Verbal (Name & ) Structural Data Admitted From: Home Planned Operative Procedure/s: Kyphoplasty Consent for Planned Operative Procedure(s) Verified: Yes Verified Documents: Surgical Consent NPO Status Verified Time NPO: 00:00 Additional verifications Anesthesia Reactions: No Hx Blood Transfusions: No Blood Transfusion Reaction: No Airway Assessment C-Spine Mobility Assessed: Yes TMJ Mobility Assessed: Yes Dentition: Partials Neurological Assessment Level of Consciousness: Awake, Alert and Appropriate Anesthesia Plan Anesthesia Risk discussed: Yes ASA Class: II Anesthesia Type: MAC
--- NOTE | 2022-01-01 13:55 | SUR.OPER ---
1320 Dr. Crane notified that pt has IV contrast allergy and reaction. Dr. Crane is okay to continue with procedure as normal.
--- NOTE | 2022-01-01 14:47 | P.OP_ITS ---
Date of procedure: 01/01/22 Pre-op Diagnosis:: L2 compression fracture acute due to recent fall Post-op Diagnosis:: Same Procedure performed:: L2 kyphoplasty Surgeon:: Dany Crane MD BUSINESS DEVELOPMENT ASSISTANT:: Other Anesthesia: MAC Estimated blood loss (mL): 5 Clinical Note:: This patient is a pleasant 56-year-old white female who is referral from Dr. Montes. She had a recent fall in November. CT scan does show an acute L2 compression fracture. She is wearing a brace this does help however continues to have increasing back pain. She presents for L2 kyphoplasty today. Operative findings:: None Operative note:: . WithInformed consent was obtained and risks and benefits of the procedure was explained to the patient. Patient was taken to the OR and was placed prone on the procedure table. The patient was prepped and draped in sterile fashion. I used 2 C arms for AP and lateral view of the L2 vertebral body. The skin and subcutaneous tissues were anesthetized using lidocaine. Bone access trochars were placed through the LEFT and RIGHT pedicle and advanced into the vertebral body. After accessing the vertebral body a balloon was inserted first on the LEFT side followed by the RIGHT side with approximately 3 mL of contrast placed in each balloon with good insufflation. After adequate spread of contrast through the balloon, the balloons were deflated and cement was introduced first on the LEFT side with placement of approximately 3-1/2 mL of cement with good spread throughout the vertebral body and then on the RIGHT side was approximately 3 1/2 mL cement with good spread throughout the vertebral body. There was no extrusion of cement through the lateral alfred, anterior or posterior alfred. Also no extrusion through superior or inferior alfred. The bone access trochars were removed and dressing was placed. The patient was taken back to recovery in stable condition. She had good resolution of her back pain 5 minutes after the procedure. She tolerated the procedure well with no complications and was discharged home neurologically intact. Plan and disposition: We will follow-up with her in reevaluate symptoms at that time. Condition: stable Disposition: PACU Complications:: None
[2022-01-01 14:55] VITALS: BP 91/52; PULSE 109; RESP 17; TEMP 36.3; O2SAT 100
[2022-01-01 15:05] VITALS: BP 111/46; PULSE 109; RESP 17; O2SAT 100
[2022-01-01 15:15] VITALS: BP 84/34; PULSE 109; RESP 17; O2SAT 98
[2022-01-01 15:25] VITALS: BP 94/32; PULSE 108; RESP 17; O2SAT 100
== END 2022-01-01 15:30 | disposition home or self-care (01) ==
PROVIDERS: PCP Family Medicine; Visit Provider Anesthesiology
PROC: (CPT 22514; principal; 2022-01-01 12:30)
DX: S32.020A Wedge compression fracture of second lumbar vertebra, initial encounter for closed fracture (principal); Z79.899 Other long term (current) drug therapy
CPT/HCPCS: 22514; 80048; 85025; 96374; J2405; J3370

== ENCOUNTER → 2022-01-07 09:31 | Outpatient (POV) | payer MEDICAID, SELFPAY ==
[2022-01-07 09:43] VITALS: BP 124/88; PULSE 84; RESP 18; TEMP 36.6; O2SAT 97; BMI 20.2
--- NOTE | 2022-01-07 10:41 | EXP.PAIN.SOA ---
[facility] Pain Management SOAP Note Subjective:: Patient is a pleasant 56-year-old female who presents today for follow-up of L2 kyphoplasty on 01/01/2022. We are currently treating the patient for low back pain, L2 compression fracture. Patient states following this procedure she did have significant pain that night as well as had additional pain yesterday. Patient denies any new trauma or injury. She states when she has had this pain she has been taking it easy and doing minimal movements/activity. Today she rates her pain a 4 out of 10. She states the pain is much better from the original pain she was experiencing before the kyphoplasty. Patient does state the pain is in her mid/low back and describes it as a aching, throbbing sensation that does occasionally have sharp pains. Patient continues to use her back brace that provides additional support and pain relief. Patient is currently managed with a 7-day dose of Percocet 7.5 mg by our office for her postoperative pain. Patient denies any side effects from this medication. She states this medication does adequately help manage her pain. Patient has been previously managed with oxycodone 5 mg 3 times a day [address] Dr. Montes's office. Patient's Vignesh is [phone]. It has been reviewed and appropriate. Review of Systems: General: No recent weight changes, no fever, no sleep disturbances Respiratory: No cough, no shortness of air, no recurring pulmonary infections Cardiovascular/peripheral vascular: No chest pain, no palpitations, no edema, no shortness of breath Gastrointestinal: No new onset incontinence, normal bowel movements reported Genitourinary: No new onset incontinence Musculoskeletal: Mid/low back pain Psychiatric: [Normal mood/affect] Neurological: [Denies weakness in extremities], [denies balance issues] Objective:: Physical Exam: General: Alert and oriented x3, no acute distress, pleasant and cooperative Lungs: Respirations even and unlabored, symmetrical chest expansion Eyes: PERRL Musculoskeletal: Flexion and extension of lumbar [spine] somewhat guarded secondary to pain, [antalgic gait noted] Neurological: Speech clear, no gross sensory deficit Assessment:: Low back pain, L2 compression fracture Plan:: Patient has been experiencing times of significant pain following her kyphoplasty procedure. Patient continues to have limited range of motion of her lumbar spine. Incision sites are clean, dry, intact at today's visit. I have counseled the patient to continue her restrictions for a full 6 weeks. I have discussed with the patient regarding ordering a lumbar MRI to verify no other fractures are present. We will order a lumbar MRI without contrast at today's visit. Patient will follow-up in office following this imaging. Patient has been instructed to contact the clinic with any concerns before the next appointment. Dr. Crane has reviewed this note and agrees with this plan of care. This note was dictated using voice recognition software and make contain errors or omissions. PFSH PFSH Medical History Anxiety Depression H/O (corrected) congenital malformations of digestive system Hot flashes due to menopause Kidney stone Migraine Night sweats Osteoporosis Sacroiliitis Surgical History H/O: hysterectomy History of back surgery History of carpal tunnel surgery Hx of tubal ligation Family History Other Brain cancer Family history of acute congestive heart failure Family history of diabetes mellitus type II Family history of hyperlipidemia Family history of hypertension Lung cancer Social History Smoking Status: Never smoker alcohol intake: never substance use type: denies use current occupational status: disabled Travel in the last 8 weeks: None
== END ==
PROVIDERS: PCP Family Medicine; Visit Provider Nurse Practitioner Family
DX: M48.56XA Collapsed vertebra, not elsewhere classified, lumbar region, initial encounter for fracture (principal); M54.50 Low back pain, unspecified
CPT/HCPCS: 99212; G0463

== ENCOUNTER → 2022-02-01 13:17 | Outpatient (CLI) | payer MEDICAID, SELFPAY ==
--- NOTE | 2022-02-01 13:27 | XR_ITS ---
FINAL REPORT CLINICAL HISTORY: l2 compression fracture FINDINGS: AP and lateral views were obtained. There is 30% compression of L2 with changes of vertebroplasty or kyphoplasty. There is no acute fracture. Vertebral alignment is normal. There is significant disc space narrowing at L5-S1. IMPRESSION: L2 compression with changes of vertebroplasty or kyphoplasty. Significant disc space narrowing at L5-S1. Reviewed, Interpreted and Dictated by Freddy Allred MD Transcribed by Kervin Garcia Authenticated and [facility]
== END ==
PROVIDERS: PCP Family Medicine; Visit Provider Family Medicine
DX: M54.50 Low back pain, unspecified (principal)
CPT/HCPCS: 72100

== ENCOUNTER → 2022-02-01 13:45 | Outpatient (POV) | payer MEDICAID, SELFPAY ==
[2022-02-01 14:22] VITALS: BP 123/77; PULSE 74; RESP 18; O2SAT 92; BMI 19.6
--- NOTE | 2022-02-01 16:48 | EXP.PAIN.SOA ---
[facility] Pain Management SOAP Note Subjective:: Patient is a pleasant 56-year-old female who presents today for follow-up. We are currently treating the patient for low back pain, L2 compression fracture. Today she rates her pain a 5 out of 10. Patient denies any new trauma or injury. Patient denies any change location or type of pain she experiences. Patient previously had a L2 kyphoplasty on 01/01/2022 and following this procedure approximately 2 days later she had significant pain mimicking her original injury. Patient states that she still continues to have occasional sharp pains. Patient is continuing to use her 's back brace to provide additional support and pain relief. Patient was prescribed Percocet 7.5 mg by our office initially for her postoperative pain. She has been prescribed [place] 7.5 mg twice a day by Dr. Montes's office and states she has enough of this medication for up till Tuesday. Patient would like us to prescribe something additionally. Patient did previously get denied for a new MRI of her lumbar spine by her insurance and just went today for an x-ray. Her Vignesh is [id number]. It is been reviewed and appropriate. Review of Systems: General: No recent weight changes, no fever, no sleep disturbances Respiratory: No cough, no shortness of air, no recurring pulmonary infections Cardiovascular/peripheral vascular: No chest pain, no palpitations, no edema, no shortness of breath Gastrointestinal: No new onset incontinence, normal bowel movements reported Genitourinary: No new onset incontinence Musculoskeletal: Low back pain Psychiatric: [Normal mood/affect] Neurological: [Denies weakness in extremities], [denies balance issues] Objective:: Physical Exam: General: Alert and oriented x3, no acute distress, pleasant and cooperative Lungs: Respirations even and unlabored, symmetrical chest expansion Eyes: PERRL Musculoskeletal: Flexion and extension of lumbar [spine] somewhat guarded secondary to pain, [antalgic gait noted] Neurological: Speech clear, no gross sensory deficit Assessment:: Low back pain, L2 compression fracture Plan:: Patient continues to have occasional sharp pains in her low back. Patient did have limited range of motion of her lumbar spine during today's visit. At this time we will not prescribe any additional pain medications. I have counseled the patient that we will proceed forward with ordering a MRI of her lumbar spine. I will order the patient methocarbamol 500 mg twice daily and provide a 14-day supply of this medication. Patient will follow-up in clinic following her imaging. Patient has been instructed to contact the clinic with any concerns before the next appointment. Dr. Crane has reviewed this note and agrees with this plan of care. This note was dictated using voice recognition software and make contain errors or omissions. PFS PFS Medical History Anxiety Depression H/O (corrected) congenital malformations of digestive system Hot flashes due to menopause Kidney stone Migraine Night sweats Osteoporosis Sacroiliitis Surgical History H/O: hysterectomy History of back surgery History of carpal tunnel surgery Hx of tubal ligation Family History Other Brain cancer Family history of acute congestive heart failure Family history of diabetes mellitus type II Family history of hyperlipidemia Family history of hypertension Lung cancer Social History Smoking Status: Never smoker alcohol intake: never substance use type: denies use current occupational status: other Travel in the last 8 weeks: None household members: significant other housing: apartment
== END | disposition home or self-care (01) ==
PROVIDERS: PCP Family Medicine; Visit Provider Nurse Practitioner Family
DX: M54.50 Low back pain, unspecified (principal)
CPT/HCPCS: 99212; G0463

== ENCOUNTER → 2022-03-08 10:34 | Outpatient (CLI) | payer MEDICAID, SELFPAY ==
--- NOTE | 2022-03-08 10:38 | MR_ITS ---
FINAL REPORT CLINICAL HISTORY: LOW BACK PAIN. HX KYPHOPLASTY 01-01-22. BILATERAL LEG PAIN TO TOES. NO INJURY OR TRAUMA. COMPARISON: October 2020 FINDINGS: Multiplanar MR imaging of the lumbar spine was performed without contrast. On the sagittal T2-weighted images, disc degeneration is seen at multiple levels. There are endplate changes at multiple levels. The vertebral alignment is normal. There is a moderate L2 compression fracture with changes of kyphoplasty. There is mild bone marrow edema in the L2 vertebral body. No other fractures are identified. The conus has an unremarkable appearance. T11-T12: No significant central canal stenosis or neural foraminal narrowing. T12-L1: No significant central canal stenosis or neural foraminal narrowing. L1-2: There is an annular bulge, facet arthropathy and vertebral osteophytes. There is mild bilateral neural foraminal narrowing. L2-3: An annular bulge is present. L3-4: There is an annular bulge, facet arthropathy and vertebral osteophytes. There is a posterior midline annular tear. There is mild bilateral neural foraminal narrowing. L4-5: There is an annular bulge, facet arthropathy and vertebral osteophytes. There is moderate bilateral neural foraminal narrowing. L5-S1: There is an annular bulge, facet arthropathy and vertebral osteophytes. There is a broad-based left foraminal disc protrusion. There is left S1 nerve root compromise. There is moderate right and severe left neural foraminal narrowing. IMPRESSION: Left foraminal disc protrusion at L5-S1 with left S1 nerve root compromise. Multilevel degenerative disc disease with areas of neural foraminal narrowing. Moderate L2 compression fracture with changes of kyphoplasty and mild bone marrow edema. Posterior midline annular tear at L3-L4. Reviewed, Interpreted and Dictated by Cristino Olson III, MD Transcribed by Kervin Garcia Authenticated and . [facility]
== END ==
PROVIDERS: PCP Family Medicine; Visit Provider Nurse Practitioner Family
DX: M54.50 Low back pain, unspecified (principal); Z87.311 Personal history of (healed) other pathological fracture
CPT/HCPCS: 72148; 76376

== ENCOUNTER → 2022-03-19 10:48 | Outpatient (POV) | payer MEDICAID, SELFPAY ==
[2022-03-19 11:05] VITALS: BP 126/86; PULSE 85; RESP 20; TEMP 36.6; O2SAT 94; BMI 19.6
--- NOTE | 2022-03-19 11:16 | EXP.PAIN.SOA ---
[facility] Pain Management SOAP Note Subjective:: Patient is a pleasant 56-year-old female who presents today for MRI follow-up. We are currently treating the patient for low back pain, L2 compression fracture, degenerative disc disease of lumbar spine with lumbar radiculopathy symptoms. Today the patient rates her pain an 8 out of 10. Patient denies any new trauma or injury. Patient denies any change of location or type of pain she experiences. Patient states this is an aching, throbbing, twisting, sharp sensation that is worse with increased activity. Patient previously had a L2 kyphoplasty on 01/01/2022 and had roughly 3 days worth of relief before this pain started occurring. Patient does continue to use her V force back brace with some additional improvements. Patient has been prescribed [place] 7.5 mg twice a day by Dr. Montes's office however she states after today she will be out of this medication. Patient was also prescribed methocarbamol 500 mg twice a day that she states provided additional improvements however it has not been as effective here recently. Patient states she has been experiencing quite a bit of family trauma and that she lost her great nephew on morning who was 11. General: No recent weight changes, no fever, no sleep disturbances Respiratory: No cough, no shortness of air, no recurring pulmonary infections Cardiovascular/peripheral vascular: No chest pain, no palpitations, no edema, no shortness of breath Gastrointestinal: No new onset incontinence, normal bowel movements reported Genitourinary: No new onset incontinence Musculoskeletal: Low back pain Psychiatric: Normal mood/affect Neurological: Denies weakness in extremities, denies balance issues Objective:: General: Alert and oriented x3, no acute distress, pleasant and cooperative Lungs: Respiration even unlabored, symmetrical chest expansion Eyes: PERRL Musculoskeletal: Flexion and extension of lumbar spine somewhat guarded secondary to pain, antalgic gait noted Neurological: Speech clear, no gross sensory deficit COMPARISON: October 2020 FINDINGS: Multiplanar MR imaging of the lumbar spine was performed without contrast. On the sagittal T2-weighted images, disc degeneration is seen at multiple levels.? There are endplate changes at multiple levels. ? The vertebral alignment is normal.? There is a moderate L2 compression fracture with changes of kyphoplasty. There is mild bone marrow edema in the L2 vertebral body.? No other fractures are identified.? The conus has an unremarkable appearance.? T11-T12:? No significant central canal stenosis or neural foraminal narrowing.? ? T12-L1:? No significant central canal stenosis or neural foraminal narrowing.? L1-2:? There is an annular bulge, facet arthropathy and vertebral osteophytes. There is mild bilateral neural foraminal narrowing.? L2-3:? An annular bulge is present.? L3-4:? There is an annular bulge, facet arthropathy and vertebral osteophytes.? There is a posterior midline annular tear.? There is mild bilateral neural foraminal narrowing.? L4-5:? There is an annular bulge, facet arthropathy and vertebral osteophytes.? There is moderate bilateral neural foraminal narrowing.? L5-S1:? There is an annular bulge, facet arthropathy and vertebral osteophytes. There is a broad-based left foraminal disc protrusion.? There is left S1 nerve root compromise.? There is moderate right and severe left neural foraminal narrowing. IMPRESSION: Left foraminal disc protrusion at L5-S1 with left S1 nerve root compromise.? ? Multilevel degenerative disc disease with areas of neural foraminal narrowing.? ? Moderate L2 compression fracture with changes of kyphoplasty and mild bone marrow edema. Posterior midline annular tear at L3-L4. Reviewed, Interpreted and Dictated by Cristino Olson III, MD Transcribed by Kervin Garcia Authenticated and [facility]
== END | disposition home or self-care (01) ==
PROVIDERS: PCP Family Medicine; Visit Provider Nurse Anesthetist, Certified Registered
DX: M51.16 Intervertebral disc disorders with radiculopathy, lumbar region (principal)
CPT/HCPCS: 99212; G0463

== ENCOUNTER 2022-03-21 09:42 | Emergency (ER) | payer MEDICAID, SELFPAY ==
[2022-03-21 09:43] VITALS: BP 103/77; PULSE 99; RESP 18; TEMP 37.1; O2SAT 100; BMI 19.6
[2022-03-21 09:49] VITALS: BP 103/77; PULSE 101; O2SAT 100
[2022-03-21 10:00] VITALS: BP 109/66; PULSE 94; O2SAT 100
[2022-03-21 10:01] LABS: Coronavirus 19, PCR Not Detected (NotDetected); Influenza A, PCR Not Detected (NotDetected); Influenza B, PCR Not Detected (NotDetected)
[2022-03-21 10:30] VITALS: BP 109/85; PULSE 94; RESP 18; O2SAT 100
--- NOTE | 2022-03-21 10:46 | XR_ITS ---
PROCEDURE INFORMATION: Exam: XR Chest Exam date and time: 03/21/2022 11:11 AM Age: 56 years old Clinical indication: Cough and fever; Patient HX: Cough, fever, chills TECHNIQUE: Imaging protocol: Radiologic exam of the chest. Views: 1 view. COMPARISON: CT ABDOMEN PELVIS WO CON 07/21/2020 6:31 PM FINDINGS: Lungs: In there is a small shaped nodular density left mid lung zone that is likely calcified stable from chinese medicine practitioner image from prior CT when allowing for differences in technique likely representing a calcified granuloma. Lung davis otherwise aerated and clear. No infiltrates. Pleural spaces: Unremarkable. No pleural effusion. No pneumothorax. Heart/Mediastinum: Unremarkable. No cardiomegaly. Bones/joints: Interval vertebroplasty L1 vertebra otherwise unremarkable for age. IMPRESSION: Stable chest. No active disease.
--- NOTE | 2022-03-21 10:47 | HMH.EDGENADL ---
Discharge Plan Disposition Patient Disposition: Home, Self-Care Condition: Good Prescriptions Prescriptions: New amoxicillin 500 mg capsule 500 mg PO TID Qty: 30 0RF promethazine-DM 6.25-15 mg/5 mL syrup 5 ml PO Q6H PRN (Reason: cough) Qty: 118 0RF No Action trazodone 150 mg tablet 150 mg PO HS PRN (Reason: insomnia) Qty: 90 3RF benzonatate 100 mg capsule 100 mg PO TID Qty: 20 0RF azithromycin [Zithromax Z-Elijah] 250 mg tablet See Rx Instructions PO .COMPLEX Qty: 6 0RF Rx Instructions: For 250 mg dose pack: take 500 mg today (day 1), then 250 mg for 4 days (days 2-5) PO furosemide 20 mg tablet See Rx Instructions .ROUTE .COMPLEX Qty: 30 1RF Dose Instruction: TAKE 1 TABLET BY MOUTH DAILY NEEDED FOR EDEMA Rx Instructions: TAKE 1 TABLET BY MOUTH DAILY NEEDED FOR EDEMA hydrocodone-acetaminophen 7.5-325 mg tablet 1 tab PO BID PRN (Reason: pain) Qty: 30 0RF clonazepam [Klonopin] 0.5 mg tablet 0.5 mg PO BID Qty: 60 0RF estradiol [Climara] 0.1 mg/24 hr patch weekly 1 patch transdermal WEEKLY oxycodone-acetaminophen [Percocet] 7.5-325 mg tablet 1 tab PO Q6H PRN (Reason: pain) Qty: 30 0RF methocarbamol 750 mg tablet 750 mg PO BID Qty: 60 0RF cetirizine 10 mg tablet See Rx Instructions .ROUTE .COMPLEX Rx Instructions: TAKE 1 TABLET BY MOUTH DAILY lidocaine [Lidoderm] 5 % adhesive patch,medicated See Rx Instructions .ROUTE .COMPLEX Rx Instructions: APPLY 1 PATCH TO AREA DAILY. LEAVE ON MOST PAINFUL AREA FOR UP TO 12 HRS fluticasone propionate [Flonase Allergy Relief] 50 mcg/actuation spray,suspension 1 spray INTRANASAL QDAY Rx Instructions: administer into each nostril diclofenac sodium 1 % gel See Rx Instructions .ROUTE .COMPLEX Rx Instructions: APPLY 2 GRAMS TO AFFECTED AREA 4 TIMES A DAY alendronate [Fosamax] 70 mg tablet 70 mg PO WEEKLY Referrals Follow up/Referrals: Kiko Montes MD [Primary Care Provider] - See instructions Activity Restrictions/Add. Instructions Additional Instructions/Restrictions: Phenergan DM cough medication as needed. Amoxicillin as prescribed for ear infection. Rest and drink plenty of fluids. Follow-up with primary care provider if not improving in 4 to 5 days. Clinical Impressions Clinical Impression: Upper respiratory infection, viral, Otitis media Instructions Patient Instructions: DI for Viral Upper Respiratory Infection -- Adult, DI for Middle Ear Infection-Adult Discharge ED Provider: Aditya Riley General Adult HPI General Chief complaint: Upper Respiratory Infection Stated complaint: Sore throat,Cough,Chills Time Seen by Provider: 03/21/22 10:40 Mode of Arrival: Ambulatory Limitations: No Limitations Description of Symptoms (Recalled from ER Triage Doc. by RN): PT WITH FEVER, BODYACHES, CHILLS, HEADACHE, SORE THROAT, BILATERAL EAR PAIN, DRY COUGH AND CONGESTION History of Present Illness HPI narrative: 2-day history of rhinorrhea, bilateral earaches, sore throat, headache, body aches, productive cough with clear phlegm, chest congestion, epigastric pain, nausea, diarrhea. She has felt warm but has not taken her temperature. No known exposures. States her epigastric pain feels like when she had inflamed intestines a couple of years ago. Related Data Home Medications Medication Instructions Recorded Confirmed cetirizine 10 mg tablet See Rx Instructions .Route 12/16/21 02/01/22 .COMPLEX ALLERGIES diclofenac sodium 1 % topical gel See Rx Instructions .Route 12/16/21 02/01/22 .COMPLEX Pain fluticasone propionate 50 1 spray intranasal QDAY Breathing 12/16/21 02/01/22 mcg/actuation nasal problems spray,suspension (Flonase Allergy Relief) lidocaine 5 % topical patch See Rx Instructions .Route 12/16/21 02/01/22 (Lidoderm) .COMPLEX Pain estradiol 0.1 mg/24 hr weekly 1 patch transdermal WEEKLY HORMONES 12/30/21
--- NOTE | 2022-03-21 10:58 | PC.NURSE ---
it technical architect @ [facility] for chest x-ray
--- NOTE | 2022-03-21 10:59 | PC.NURSE ---
XR AT BEDSIDE
--- NOTE | 2022-03-21 11:07 | PC.NURSE ---
DR. YUAN AT BEDSIDE
[2022-03-21 11:30] VITALS: BP 125/81; PULSE 95; RESP 18; TEMP 37; O2SAT 99
== END 2022-03-21 11:30 | disposition home or self-care (01) ==
PROVIDERS: Emergency Provider Emergency Medicine; PCP Family Medicine
DX: J06.9 Acute upper respiratory infection, unspecified (principal); H66.90 Otitis media, unspecified, unspecified ear; F41.9 Anxiety disorder, unspecified; F32.A Depression, unspecified; Z87.442 Personal history of urinary calculi; Z90.710 Acquired absence of both cervix and uterus; Z98.890 Other specified postprocedural states; Z85.841 Personal history of malignant neoplasm of brain; Z82.49 Family history of ischemic heart disease and other diseases of the circulatory system; Z80.1 Family history of malignant neoplasm of trachea, bronchus and lung; Z20.822 Contact with and (suspected) exposure to COVID-19
CPT/HCPCS: 71045; 99283; 99284; C9803; U0003; U0005

== ENCOUNTER 2022-03-25 12:36 | Emergency (ER) | payer MEDICAID, SELFPAY ==
[2022-03-25 13:00] VITALS: BP 105/68; PULSE 85; RESP 19; TEMP 36.6; O2SAT 99; BMI 19.1
--- NOTE | 2022-03-25 13:00 | XR_ITS ---
FINAL REPORT CLINICAL HISTORY: cough body aches fever COMPARISON: 03/21/2022 FINDINGS: TWO-VIEW CHEST Two views of the chest were obtained. The heart size and pulmonary vascularity are within normal limits. The mediastinum is normal. There is mild elevation of the left diaphragm. There is a calcified granuloma in the left midlung. The lungs are otherwise clear. There is no pneumothorax. The bony thorax is intact. IMPRESSION: No acute findings. Reviewed, Interpreted and Dictated by Toni Loja MD Transcribed by Kezia Cooper Authenticated and [facility]
[2022-03-25 13:17] LABS: UTC Influenza A Antigen Negative (Negative); UTC Influenza B Antigen Negative (Negative); UTC Strep Screen (Rapid) Negative (Negative)
--- NOTE | 2022-03-25 13:30 | EXP.UTC ---
Discharge Plan Disposition Patient Disposition: Home, Self-Care Condition: Good Prescriptions Prescriptions: New benzonatate [benzonatate] 100 mg capsule 100 mg PO TIDP PRN (Reason: Cough) Qty: 30 0RF methylprednisolone 4 mg Tablets,Dose Pack 4 mg PO DIRECTED Qty: 21 0RF azithromycin [Zithromax] 250 mg tablet 250 mg PO UD DOSE PK Qty: 6 0RF Rx Instructions: Take two (2) tablets today, then one (1) tablet days #2 thru #5 ondansetron 4 mg Tablet,Disintegrating 4 mg PO Q8H PRN (Reason: Nausea) Qty: 20 0RF No Action clonazepam [Klonopin] 0.5 mg tablet 0.5 mg PO BID Qty: 60 0RF estradiol [Climara] 0.1 mg/24 hr patch weekly 1 patch transdermal WEEKLY cetirizine 10 mg tablet See Rx Instructions .ROUTE .COMPLEX Rx Instructions: TAKE 1 TABLET BY MOUTH DAILY Referrals Follow up/Referrals: Kiko Montes MD [Primary Care Provider] - See instructions Activity Restrictions/Add. Instructions Additional Instructions/Restrictions: Drink plenty of fluids. Take tylenol or ibuprofen for pain or fever. Take the medications as directed. Follow up with your regular doctor. GO TO THE ER FOR ANY WORSENING SYMPTOMS Clinical Impressions Clinical Impression: Acute viral syndrome, Otitis media Stand Alone Forms Stand Alone Forms: Work/School Release Instructions Patient Instructions: Middle Ear Infection, DI for Pharyngitis/Tonsillopharyngitis -- Adult, DI for Viral Syndrome Discharge ED Provider: Richie Poe [facility] General Stated complaint: sob, cough, no appetite, vomiting Mode of Arrival: Ambulatory Source of Information: Patient Limitations: No Limitations Time Seen by Provider: 03/25/22 13:30 Description of Symptoms (Recalled from Triage Doc. by RN): cough, sore throat, diarrhea, states cannot eat or drink for 7 days, ear pain HEENT Symptoms (Recalled from RN notes): Yes Resp Symptoms (Recalled from RN notes): No Skin Symptoms (Recalled from RN notes): No MS Symptoms (Recalled from RN notes): No Functional Status (Recalled from RN notes): n/a History of Present Illness Provider Complaint: She states that for the past 7 days she has had productive cough, chills, body aches and malaise. She came here to this hospital when her symptoms first began. She states that she tested negative for flu, strep, and covid-19 at that time. Related Data Home Medications Medication Instructions Recorded Confirmed cetirizine 10 mg tablet See Rx Instructions .Route 12/16/21 03/25/22 .COMPLEX ALLERGIES estradiol 0.1 mg/24 hr weekly 1 patch transdermal WEEKLY HORMONES 12/30/21 03/25/22 transdermal patch (Climara) Previous Rx's Medication Instructions Recorded clonazepam 0.5 mg tablet (Klonopin) 0.5 mg PO BID NERVES #60 tabs 03/11/22 azithromycin 250 mg tablet 250 mg PO UD DOSE PK #6 tabs 03/25/22 (Zithromax) benzonatate 100 mg capsule 100 mg PO TIDP PRN Cough #30 caps 03/25/22 methylprednisolone 4 mg tablets in 4 mg PO DIRECTED #21 tabs 03/25/22 a dose pack ondansetron 4 mg disintegrating 4 mg PO Q8H PRN Nausea #20 tabs 03/25/22 tablet Allergies Allergy/AdvReac Type Severity Reaction Status Date / Time acetaminophen Allergy Verified 03/25/22 13:16 [From Excedrin Extra Strength] aspirin Allergy Verified 03/25/22 13:16 [From Excedrin Extra Strength] caffeine Allergy Verified 03/25/22 13:16 [From Excedrin Extra Strength] Iodinated Contrast Media Allergy Verified 03/25/22 13:16 Worker's Comp Is this a Worker's Comp case?: No [facility] Disclaimer: The information contained in this section may have been updated after the patient was seen, as this information can be updated by other users. Medical History Anxiety Depression H/O (corrected) congenital malformations of digestive system Hot flashes due to menopause Kidney stone Migraine Night swea
[2022-03-25 14:07] VITALS: BP 105/68; PULSE 85; RESP 19; TEMP 36.6; O2SAT 99
== END 2022-03-25 14:07 | disposition home or self-care (01) ==
PROVIDERS: Emergency Provider Nurse Practitioner Family; PCP Family Medicine
DX: H66.90 Otitis media, unspecified, unspecified ear (principal); B34.9 Viral infection, unspecified
CPT/HCPCS: 71046; 87804; 87880; 99212; 99213; C9803; G0463; U0003; U0005

== ENCOUNTER → 2022-09-30 23:13 | Outpatient (CLI) | payer MEDICAID, SELFPAY ==
[2022-09-30 19:37] LABS: Amphetamine/Metha Screen,Urine Negative ng/ml (<1000); Barbiturates Screen,Urine Negative ng/ml (<200)
[2022-09-30 19:38] LABS: Benzodiazepines Screen,Urine Negative ng/ml (<200)
[2022-09-30 19:39] LABS: Cannabinoid Screen,Urine Negative ng/ml (<50); Cocaine Screen,Urine Negative ng/ml (<300)
[2022-09-30 19:40] LABS: Opiate Screen,Urine Negative ng/ml (<300)
[2022-09-30 19:41] LABS: Phencyclidine Screen,Urine Negative ng/ml (<25)
[2022-09-30 19:43] LABS: Methadone Screen,Urine Negative ng/ml (<300)
== END ==
PROVIDERS: PCP Nurse Practitioner Family; Visit Provider Nurse Practitioner Family
DX: N39.0 Urinary tract infection, site not specified (principal); Z79.899 Other long term (current) drug therapy
CPT/HCPCS: 80305; 87086

== ENCOUNTER → 2022-10-29 13:50 | Outpatient (CLI) | payer MEDICAID, SELFPAY ==
[2022-10-29 18:24] LABS: Basophils % 0.4 % (0.1-2.0); Eosinophils # 0.2 K/mm3 (0.0-0.4); Eosinophils % 2.4 % (0.1-12.0); Hematocrit 44.7 % (37.0-47.0); Hemoglobin 14.3 g/dL (12.2-16.2); Lymphocytes # 2.2 K/mm3 (0.7-4.5); Lymphocytes % 34.8 % (10-50); Mean Corpuscular HGB Conc 31.9 g/dL (31.8-35.4); Mean Corpuscular Hemoglobin 29.8 pg (27.0-31.2); Mean Corpuscular Volume 93.4 fl (81-99); Mean Platelet Volume 9.4 fl (7.4-10.4); Monocytes # 0.3 K/mm3 (0.1-1.0); Monocytes % 4.4 % (1.7-9.3); Neutrophils # 3.6 K/mm3 (1.8-7.8); Neutrophils % 58.4 % (37.0-80.0); Platelet Count 233 K/mm3 (142-424); Red Blood Count 4.79 M/mm3 (4.20-5.40); White Blood Count 6.2 K/mm3 (4.8-10.8)
[2022-10-29 18:55] LABS: Alanine Aminotransferase 30 U/L (12-78); Albumin Level 4.9 g/dl (3.5-5.0); Albumin/Globulin Ratio 1.4 (1.1-1.8); Alkaline Phosphatase 83 U/L (38-126); Aspartate Amino Transferase 49 U/L (14-36); Bilirubin,Total 0.4 mg/dl (0.2-1.3); Blood Urea Nitrogen 20 mg/dl (7-17); Calcium 10.1 mg/dl (8.4-10.2); Carbon Dioxide 30 mmol/L (22.0-30.0); Chloride 100 mmol/L (98-107); Chol/HDL Ratio 2.9 (1-3.5); Cholesterol 218 mg/dl (140-200); Estimated Glomerular Filt Rate 73 ml/min (>60); GFR (African American) 89 ML/MIN (>60); Globulin 3.5 g/dL (1.3-3.2); Glucose 68 mg/dl (74-100); HDL Cholesterol 76 mg/dl (40-60); Sodium 140 mmol/L (136-145); Total Protein,Serum 8.4 g/dl (6.3-8.2); Triglycerides 89 mg/dl (30-150); VLDL Cholesterol 18 mg/dL (0-40)
[2022-10-29 19:06] LABS: Direct LDL Cholesterol 117.37 mg/dL (100-129)
[2022-10-29 19:12] LABS: 25-OH Vitamin D, Total 36.6 ng/mL (30-100); T4 (Thyroxine) 9.6 ug/dl (5.53-11.0)
[2022-10-29 19:25] LABS: Thyroid Stimulating Hormone 3.08 uIU/mL (0.465-4.68)
== END ==
PROVIDERS: PCP Nurse Practitioner Family; Visit Provider Nurse Practitioner Family
DX: M51.16 Intervertebral disc disorders with radiculopathy, lumbar region (principal); F41.9 Anxiety disorder, unspecified; Z79.899 Other long term (current) drug therapy
CPT/HCPCS: 80053; 80061; 82306; 84436; 84443; 85025

== ENCOUNTER 2023-03-23 07:31 | Outpatient (CLI) | payer MEDICAID, SELFPAY ==
[2023-03-23 18:00] LABS: Coronavirus 19, PCR Not Detected (NotDetected); Influenza A, PCR Not Detected (NotDetected); Influenza B, PCR Not Detected (NotDetected)
[2023-03-23 22:04] LABS: Amphetamine/Metha Screen,Urine Negative ng/ml (<1000); Barbiturates Screen,Urine Negative ng/ml (<200); Benzodiazepines Screen,Urine Negative ng/ml (<200); Cannabinoid Screen,Urine Negative ng/ml (<50); Cocaine Screen,Urine Negative ng/ml (<300); Methadone Screen,Urine Negative ng/ml (<300); Opiate Screen,Urine Positive ng/ml (<300); Phencyclidine Screen,Urine Negative ng/ml (<25)
== END 2023-03-23 23:59 ==
LOC: LAB.DROPOF 03-24 07:32
PROVIDERS: PCP Nurse Practitioner Family; Visit Provider Nurse Practitioner Family
DX: R11.0 Nausea (principal); R50.9 Fever, unspecified; R68.89 Other general symptoms and signs; F41.9 Anxiety disorder, unspecified; Z79.899 Other long term (current) drug therapy
CPT/HCPCS: 80307; 87636

== ENCOUNTER 2023-06-15 18:11 | Outpatient (CLI) | payer MEDICAID, SELFPAY ==
[2023-06-15 18:57] LABS: Barbiturates Screen,Urine Negative ng/ml (<200); Benzodiazepines Screen,Urine Negative ng/ml (<200)
[2023-06-15 18:58] LABS: Amphetamine/Metha Screen,Urine Negative ng/ml (<1000)
[2023-06-15 18:59] LABS: Cocaine Screen,Urine Negative ng/ml (<300)
[2023-06-15 19:00] LABS: Cannabinoid Screen,Urine Negative ng/ml (<50); Methadone Screen,Urine Negative ng/ml (<300)
[2023-06-15 19:04] LABS: Opiate Screen,Urine Positive ng/ml (<300); Phencyclidine Screen,Urine Negative ng/ml (<25)
[2023-06-21 15:41] LABS: Alprazolam Negative (Cutoff=100); Benzodiazepines Positive ng/mL (Cutoff=100); Clonazepam Positive (.); Clonazepam Confirm 166 ng/mL (Cutoff=100); Flurazepam Negative (Cutoff=100); Lorazepam Negative (Cutoff=100); Midazolam Negative (Cutoff=100); Temazepam Negative (Cutoff=100); Triazolam Negative (Cutoff=100)
== END 2023-06-15 23:59 ==
LOC: LAB.DROPOF 18:11
PROVIDERS: PCP Nurse Practitioner Acute Care; Visit Provider Nurse Practitioner Acute Care
DX: Z79.899 Other long term (current) drug therapy (principal)
CPT/HCPCS: 80307; 80346

== ENCOUNTER 2024-05-22 10:22 | Outpatient (CLI) | payer MEDICAID, SELFPAY ==
[2024-05-22 20:14] LABS: Basophils % 0.5 % (0.1-2.0); Eosinophils # 0.1 K/mm3 (0.0-0.4); Eosinophils % 1.4 % (0.1-12.0); Hematocrit 42.7 % (37.0-47.0); Hemoglobin 13.9 g/dL (12.2-16.2); Lymphocytes # 1.7 K/mm3 (0.7-4.5); Lymphocytes % 28.9 % (10-50); Mean Corpuscular HGB Conc 32.6 g/dL (31.8-35.4); Mean Corpuscular Volume 95.1 fl (81-99); Mean Platelet Volume 11.6 fl (7.4-10.4); Monocytes # 0.3 K/mm3 (0.1-1.0); Neutrophils # 3.8 K/mm3 (1.8-7.8); Platelet Count 212 K/mm3 (142-424); Red Blood Count 4.49 M/mm3 (4.20-5.40); Red Cell Distribution Width 13.3 % (11.5-17.5); White Blood Count 5.9 K/mm3 (4.8-10.8)
[2024-05-22 21:17] LABS: Alanine Aminotransferase 16 U/L (12-78); Albumin Level 4.8 g/dl (3.5-5.0); Albumin/Globulin Ratio 1.8 (1.1-1.8); Alkaline Phosphatase 67 U/L (38-126); Aspartate Amino Transferase 23 U/L (14-36); Bilirubin,Total 0.6 mg/dl (0.2-1.3); Blood Urea Nitrogen 15 mg/dl (7-17); Calcium 9.4 mg/dl (8.4-10.2); Carbon Dioxide 26 mmol/L (22.0-30.0); Chloride 106 mmol/L (98-107); Chol/HDL Ratio 2.5 (1-3.5); Cholesterol 175 mg/dl (140-200); Estimated Glomerular Filt Rate 102 ml/min (>60); GFR (African American) 123 ML/MIN (>60); Globulin 2.6 g/dL (1.3-3.2); Glucose 91 mg/dl (74-100); HDL Cholesterol 71 mg/dl (40-60); Sodium 141 mmol/L (136-145); Total Protein,Serum 7.4 g/dl (6.3-8.2); Triglycerides 70 mg/dl (30-150); VLDL Cholesterol 14 mg/dL (0-40)
[2024-05-22 21:28] LABS: Direct LDL Cholesterol 87.55 mg/dL (100-129)
[2024-05-22 21:35] LABS: 25-OH Vitamin D, Total 31.7 ng/mL (30-100)
== END 2024-05-22 23:59 | disposition home or self-care (01) ==
LOC: LAB.DROPOF 05-23 10:22
PROVIDERS: PCP Nurse Practitioner Family; Visit Provider Nurse Practitioner Family
DX: M54.50 Low back pain, unspecified (principal); F41.1 Generalized anxiety disorder; M51.16 Intervertebral disc disorders with radiculopathy, lumbar region; M48.061 Spinal stenosis, lumbar region without neurogenic claudication; Z68.22 Body mass index [BMI] 22.0-22.9, adult
CPT/HCPCS: 80053; 80061; 82306; 84443; 85025